=== PATIENT | female | born 1995 | race Caucasian/White ===

== ENCOUNTER 2021-03-07 22:01 | Emergency (ER) | payer OTHER, SELFPAY ==
--- NOTE | ~2021-03-07 | XR_ITS ---
XR ankle LT min 3V, XR foot LT min 3V 03/07/2021 22:23 INDICATION: Left foot and ankle pain after fall PROCEDURE: 3 views left ankle and 3 views left foot COMPARISON: No prior studies for comparison. FINDINGS: Fracture, dislocation or subluxation is not identified. The soft tissues appear within norm al limits. No foreign bodies are identified. IMPRESSION: 1: NO ACUTE BONE OR JOINT ABNORMALITY IDENTIFIED. Reviewed, dictated and finalized at location A. IMPRESSION: 1: NO ACUTE BONE OR JOINT ABNORMALITY IDENTIFIED.
[2021-03-07 22:07] VITALS: BP 149/86; PULSE 72; RESP 16; TEMP 36; O2SAT 100
--- NOTE | 2021-03-07 23:55 | ED.LOWEXIN ---
HPI - Extremity Injury (Lower) General Chief Complaint: Extremity Injury, Lower Stated Complaint: left ankle injury Time Seen by Provider: 03/07/21 23:53 Source: patient, family and RN notes reviewed Limitations: no limitations History of Present Illness HPI Narrative: Patient is 25 years old white female twisted her left ankle after falling down off 1 step. Patient denies other injuries. 3-hour prior to arrival. Related Data Allergies Allergy/AdvReac Type Severity Reaction Status Date / Time No Known Allergies Allergy Verified 09/17/19 16:02 Review of Systems Review of Systems: Narrative: CONSTITUTIONAL: Denies fever, chills, or sweats. EYES: Denies visual changes, redness, or discharge. ENT: Denies rhinorrhea, congestion, sore throat, or otalgia. CARDIOVASCULAR: Denies chest pain, palpitations, or edema. RESPIRATORY: Denies cough or dyspnea. GASTROINTESTINAL: Denies abdominal pain, nausea, vomiting, or diarrhea. GENITOURINARY: Denies dysuria or hematuria. SKIN: Denies rash or itching. MUSCULOSKELETAL: Denies back pain, joint pain, or myalgia. NEUROLOGIC: Denies headache, numbness, or weakness. PSYCHIATRIC: Denies anxiety or depression. [facility] Past Medical History Medical History Depression Surgical History Surgical History History of cholecystectomy History of Zora-en-Y gastric bypass Social History Social History Smoking status: Never smoker Alcohol intake: never Gender identity (if verbalized by the patient): Female Exam Narrative: Exam Narrative: General appearance: Well-developed, well-nourished Skin: Normal color Chest and respiratory: Airway patent, no respiratory distress, no accessory muscle use Heart: Regular rate/rhythm Vascular: Normal peripheral pulses, normal capillary refill. Musculoskeletal: Diffuse tenderness left ankle, mainly lateral malleolus with swelling, no deformity, severe limited range of motion Neurologic: Alert and oriented ?3, Course Course Emergency Course: Stable Vital Signs Vital signs: Vital Signs Temperature 36.0 C L 03/07/21 22:07 Pulse Rate 72 03/07/21 22:07 Respiratory Rate 16 03/07/21 22:07 Blood Pressure 149/86 H 03/07/21 22:07 Pulse Oximetry 100 03/07/21 22:07 Temperature 36.0 C L 03/07/21 22:07 Pulse Rate 68 03/08/21 00:13 Respiratory Rate 18 03/08/21 00:13 Blood Pressure 138/72 03/08/21 00:13 Pulse Oximetry 98 03/08/21 00:13 MDM - Extremity Injury (Lower) MDM Narrative Medical decision making narrative: Patient had a fall and left ankle twist. No other injuries. X-ray left ankle and foot ordered. Further plan to follow Imaging Data Radiologist's impression: Impressions Ankle X-Ray 03/07/21 22:24 IMPRESSION: 1: NO ACUTE BONE OR JOINT ABNORMALITY IDENTIFIED. Foot X-Ray 03/07/21 22:24 IMPRESSION: 1: NO ACUTE BONE OR JOINT ABNORMALITY IDENTIFIED. Critical Care Time Critical Care Time Critical Care Time: No Discharge Plan Discharge Clinical Impression: Ankle sprain and strain Patient Disposition: Home, Self-Care Condition: Stable Instructions: Ankle Sprain (ED), Ankle Stirrup Splint (ED) Additional Instructions: Return if symptoms are worsening , call your family physician for appointment, take Tylenol as as needed for aches and pain, continue home medications., Keep left foot elevated, ice pack 20 minutes/h for the next 24 hours, do not put any weight on the left foot. Prescriptions: No Action sulfamethoxazole-trimethoprim [Bactr
[2021-03-08 00:13] VITALS: BP 138/72; PULSE 68; RESP 18; O2SAT 98
== END 2021-03-08 00:10 | disposition home or self-care (01) ==
PROVIDERS: Emergency Provider Emergency Medicine
DX: S93.402A Sprain of unspecified ligament of left ankle, initial encounter (principal); S96.912A Strain of unspecified muscle and tendon at ankle and foot level, left foot, initial encounter; Z98.84 Bariatric surgery status; W10.9XXA Fall (on) (from) unspecified stairs and steps, initial encounter
CPT/HCPCS: 73610; 73630; 99283

== ENCOUNTER 2021-05-28 07:47 | Outpatient (RCR) | payer OTHER, SELFPAY ==
[2021-05-28] MEDS: RHO(D) IMMUNE GLOBULIN 300 MCG/2 ML SYRINGE IM (13:22)
== END 2021-08-25 23:59 | disposition home or self-care (01) ==
LOC: ANHLAB 07:47
PROVIDERS: Visit Provider Advanced Practice Midwife
DX: Z29.13 Encounter for prophylactic Rho(D) immune globulin (principal); O36.0190 Maternal care for anti-D [Rh] antibodies, unspecified trimester, not applicable or unspecified; Z3A.00 Weeks of gestation of pregnancy not specified
CPT/HCPCS: 36415; 85461; 90384; 96372; J2790

== ENCOUNTER 2021-06-12 14:03 | Outpatient (CLI) | payer OTHER, SELFPAY ==
[2021-06-12 15:31] LABS: Hematocrit 32.8 % (37.0-47.0); Hemoglobin 10.8 g/dL (12.0-15.0)
[2021-06-12 15:41] LABS: Glucose 1 Hour PP 50gm Dose 82 mg/dL
[2021-06-12 16:23] LABS: HIV 1/2 Ab P24 Ag Result Negative (Negative)
[2021-06-13 11:39] LABS: Rapid Plasma Reagin Non-Reactive (NonReactive)
== END 2021-06-12 14:04 | disposition home or self-care (01) ==
LOC: ANHLAB 14:07
PROVIDERS: Visit Provider Advanced Practice Midwife
DX: Z34.90 Encounter for supervision of normal pregnancy, unspecified, unspecified trimester (principal); Z3A.00 Weeks of gestation of pregnancy not specified
CPT/HCPCS: 36415; 82947; 85014; 85018; 86592; 86703; 86850; 86880; 86900; 86901; G0432

== ENCOUNTER 2021-08-14 07:54 | Outpatient (RCR) | payer OTHER, SELFPAY ==
[2021-08-14] MEDS: RHO(D) IMMUNE GLOBULIN 300 MCG/2 ML SYRINGE IM (17:15)
== END 2021-08-14 07:55 | disposition home or self-care (01) ==
LOC: ANHLAB 07:54
PROVIDERS: Visit Provider Obstetrics & Gynecology
DX: Z29.13 Encounter for prophylactic Rho(D) immune globulin (principal); O36.0190 Maternal care for anti-D [Rh] antibodies, unspecified trimester, not applicable or unspecified; Z3A.00 Weeks of gestation of pregnancy not specified
CPT/HCPCS: 36415; 85461; 90384; 96372; J2790

== ENCOUNTER 2021-08-29 17:14 | Outpatient (CLI) | payer OTHER, SELFPAY ==
[2021-08-29 17:52] VITALS: BP 114/65; PULSE 84
--- NOTE | 2021-08-29 17:55 | PC.NURSE ---
Called Dr. Livingston. Informed of negative ROM plus. Pt denies contractions at this time and no contractions seen on monitor. Reactive tracing. March D/C home.
== END 2021-08-29 18:01 | disposition home or self-care (01) ==
LOC: ANHOBOP 17:18 → ANHLDR 17:19
PROVIDERS: Visit Provider Obstetrics & Gynecology
DX: O41.8X90 Other specified disorders of amniotic fluid and membranes, unspecified trimester, not applicable or unspecified (principal); Z3A.00 Weeks of gestation of pregnancy not specified
CPT/HCPCS: 59025; 84112; 99199

== ENCOUNTER 2021-09-04 16:30 | Outpatient (RCR) | payer OTHER, SELFPAY ==
[2021-07-29 13:30] VITALS: BP 135/76; PULSE 87
--- NOTE | 2021-07-29 14:01 | PC.NURSE ---
1345- Spoke with Dr. Cervantes, orders for just NST and BPP. IF normal, patient may be discharged to home.
[2021-08-04 16:42] VITALS: BP 133/66; PULSE 88
[2021-08-07 17:15] VITALS: BP 121/77; PULSE 95
[2021-08-14 17:12] VITALS: BP 118/71; PULSE 88
[2021-08-21 17:02] VITALS: BP 122/67; PULSE 74
--- NOTE | ~2021-09-04 | US_ITS ---
EXAMINATION: US OB BPP wo non-stress EXAM DATE: 07/29/2021 14:12 INDICATION: PT Kicked In Stomach . 3rd trimester. TECHNIQUE: Pelvic obstetrical transabdominal sonogram was performed by a technologist. There are mu ltiple grayscale and Doppler images available for interpretation. There are no earlier studies of th is gestation for comparison. FINDINGS: There is a single fetus identified in vertex presentation with a heart rate of 132 beats pe r minute. The placenta is located in the anterior position. There is no sonographic evidence of retr oplacental hemorrhage identified. BIOPHYSICAL PROFILE (performed by the technologist) breathing (30 sec sustained breathing in 30 minutes): 2 out of 2 movement (3 gross body movements in 30 minutes): 2 out of 2 tone (one episode of kjizjtq-ykproqjrb-bijglty limb movement): 2 out of 2 Amniotic fluid pocket (2 cm): 2 out of 2 Total score: 8 out of 8 IMPRESSION: 1. Single fetus with heart rate of 132 bpm. 2. Normal biophysical profile score of 8 out of 8. Reviewed, dictated and finalized at location B.
[2021-09-04 17:30] VITALS: BP 127/75; PULSE 92
== END 2021-10-27 23:59 | disposition home or self-care (01) ==
LOC: ANHOBOP 16:30
PROVIDERS: Visit Provider Obstetrics & Gynecology
DX: O99.893 Other specified diseases and conditions complicating puerperium (principal); W50.1XXA Accidental kick by another person, initial encounter; Z3A.33 33 weeks gestation of pregnancy; E66.9 Obesity, unspecified; Z3A.34 34 weeks gestation of pregnancy; Z3A.35 35 weeks gestation of pregnancy; Z3A.36 36 weeks gestation of pregnancy; Z3A.37 37 weeks gestation of pregnancy; Z3A.39 39 weeks gestation of pregnancy
CPT/HCPCS: 59025; 76819

== ENCOUNTER 2021-09-05 23:36 | Inpatient (IN) | payer OTHER, SELFPAY ==
--- NOTE | 2021-09-05 23:36 | LDADM ---
This patient, Josy Cannon, was admitted to Labor/Delivery/Recovery 105 on 09/05/21 at 23:36. Plans for labor, pain management and were discussed with patient. Patient/family oriented to hospital policies and general routines including ID bracelet, bed and alarms, visiting hours, pain management, procedures, bathroom and other care routines, personal items, smoking policy, room service/diet and guest tray routines, infant security routines, and visiting hours. Patient/Family are encouraged to report perceived risks to care and to ask questions if they do not understand what they are told or what they should do. See OBIX for further documentation.
[2021-09-06] VITALS (28 sets, daily range): BP systolic 96–137; BP diastolic 51–105; PULSE 66–96; RESP 16–18; TEMP 36.2–37.1; O2SAT 99–100; BMI 50.3
[2021-09-06 00:49] LABS: Basophils Percent Auto 0.2 % (0.2-1.2); Eosinophils Percent Auto 0.3 % (0-4.4); Hematocrit 36.6 % (37.0-47.0); Hemoglobin 12.1 g/dL (12.0-15.0); Immature Granulocyte Absolute 0.03 K/mm3 (0.00-0.031); Immature Granulocyte Percent A 0.3 % (0-0.5); Lymphocytes Absolute Auto 1.76 K/mm3 (0.9-3.2); Lymphocytes Percent Auto 15.8 % (18.3-44.2); Mean Corpuscular HGB Conc 33.1 g/dl (32-36); Mean Corpuscular Hemoglobin 28.5 pg (26-34); Mean Corpuscular Volume 86.1 fl (80-100); Monocytes Absolute Auto 0.5 K/mm3 (0.1-0.6); Monocytes Percent Auto 4.5 % (2.6-8.5); Neutrophils Absolute Auto 8.8 K/mm3 (1.3-6.7); Neutrophils Percent Auto 78.9 % (45.5-73.1); Platelet Count Result 242 k/mm3 (150-375); Red Blood Count 4.25 M/mm3 (4.2-5.4); Red Cell Distribution Width 13.5 % (11.5-14.5); White Blood Count 11.2 K/mm3 (4.5-10.0)
[2021-09-06] MEDS: fentaNYL CITRATE INJ (*CRX) 100 MCG/2 ML VIAL 50 MCG IV PUSH (01:16)
[2021-09-06] MEDS: fentaNYL CITRATE INJ (*CRX) 100 MCG/2 ML VIAL IV PUSH ×2 (03:09→05:49)
[2021-09-06] MEDS: LACTATED RINGERS 1,000 ML 125 ML IV CONT (05:52)
[2021-09-06] MEDS: OXYTOCIN 30 UNITS/NS 500 ML 30 UNITS/500 ML BAG IV CONT (05:52)
--- NOTE | 2021-09-06 08:01 | WPDHPUPDATE1 ---
History and Physical Update Update Date/Time: 09/06/21 08:01 This patient is a 26-year-old multiparous female at term who presented in labor. is uncomplicated. Artificial rupture membranes was performed-clear fluid History and Physical has been reviewed, including an updated exam of the patient. There are NO changes in the patient's condition. Risks, benefits, and alternatives have been discussed and questions answered. Patient agrees to proceed with procedure.
--- NOTE | 2021-09-06 08:17 | PM.OBPRVD ---
OB - Delivery Note Procedure Delivery date: 09/06/21 Intrapartal events: None Induction method: none Delivery augmentation: rupture of membranes Delivery monitor: external FHT and external uterine Route of delivery: Laceration Description: None Specimen: No Quantitative Blood Loss (ml): 200 Baby Date of : 09/06/21 Time of : 08:07 Weeks of gestation at delivery: 39 gender: Female Weight (pounds): 8 Weight (ounces): 14 Placenta delivery description: Spontaneous score one minute: 9 score five minutes: 9
[2021-09-06] MEDS: OXYTOCIN 30 UNITS/NS 500 ML 30 UNITS/500 ML BAG 125 UNITS IV CONT (08:45)
[2021-09-06] MEDS: IBUPROFEN 600 MG TABLET PO ×3 (10:00→23:21)
--- NOTE | 2021-09-06 10:52 | PC.NURSE ---
Patient transferred to post room #290 per wheelchair. Support person present. Oriented to unit, room, information board, rooming in, admission packet and security measures. Patient verbalizes understanding.
[2021-09-06] MEDS: MULTIVIT/MIN/PREN/FOL AC/IRON TABLET 1 TAB PO (16:36)
[2021-09-06] MEDS: TETANUS,DIPHTHERIA,AC PERTUSSIS ADULT (0.5 ML) BOOSTRIX IM (18:28)
--- NOTE | 2021-09-06 19:29 | PC.NURSE ---
Patient viewed the discharge video Mother & Baby Care, The First Two Weeks online. Patient was given the opportunity and encouraged to ask questions. Patient verbalized understanding of information shared and has been given the mother/baby guide for home reference.
[2021-09-07 04:10] VITALS: BP 115/72; PULSE 67; RESP 16; TEMP 36.1; O2SAT 98
[2021-09-07 04:18] LABS: Hematocrit 30.7 % (37.0-47.0)
[2021-09-07] MEDS: MULTIVIT/MIN/PREN/FOL AC/IRON TABLET 1 TAB PO (07:53)
[2021-09-07] MEDS: IBUPROFEN 600 MG TABLET PO (07:53)
[2021-09-07] MEDS: DOCUSATE SODIUM 100 MG CAPSULE PO (07:53)
[2021-09-07 08:00] VITALS: BP 125/75; PULSE 70; RESP 18; TEMP 36.7
--- NOTE | 2021-09-07 08:39 | PC.NURSE ---
Self care and infant care discharge instructions given including follow up visit date and time. Mother verbalized understanding. No questions or concerns voiced. Very pleasant. FOB at side.
--- NOTE | 2021-09-07 12:13 | PM.OBPNVD ---
OB - PN: Subj Subjective Date/time seen: 09/07/21 12:13 Patient comments: no complaints, pain well controlled, incisional pain, tolerating diet and flatus present OB - PN: Obj Data Labs CBC & Chem 7: 09/07/21 04:07 Labs: Laboratory Results - last 24 hr 09/07/21 04:07 Hgb 10.0 L Hct 30.7 L OB - PN A/P Plan day: 1 Plan: routine care Comments: No problems, routine care Time Spent With Patient Time: Total time spent is greater than 50% in coordination of care (as documented) at patient's floor/unit and/or counseling patient: Exam Const: General: comfortable, no acute distress and alert Resp: Effort & Inspection: normal respiratory effort Auscultation: no crackles, no rales and no rhonchi Cardio: Rate: regular rate Heart sounds: no click, no murmurs and no rubs GI: Inspection: non-distended GI Palp: No Tenderness to palpation present (GI) Auscultation: normal bowel sounds Other: Incision - CDI Extrem: General: normal to inspection, no pedal edema and no calf tenderness
--- NOTE | 2021-09-07 12:14 | PM.OBDSVD ---
DS: Admitting Diagnosis Discharge Date 09/07/2021 Admitting Diagnosis term DS: Discharge Diagnosis Discharge Diagnosis (1) Term delivered: Code(s): O80 - Encounter for full-term uncomplicated delivery Status: Acute OB - DS: Summary OB Procedures : None OB Procedures Intrapartum: Spontaneous Vag Delivery OB Procedures: : None Time Spent with Patient Time attestation: Total time spent providing and/or coordinating discharge services: DS: Data Data Completed and Pending Labs on day of discharge: Labs from last 24 hours 09/07/21 04:07 Hgb 10.0 L Hct 30.7 L Discharge Plan Discharge Attending physician on discharge: Sandip Cervantes Discharging Clinician: Sandip Cervantes Anticipated Discharge Date/Time: 09/07/21 10:00 Patient Disposition: Home, Self-Care Activity: may shower and pelvic rest Diet: regular Discharge Instructions: Education: Mom and Baby Guide Given to: Mother Follow-Up: Call your delivering provider's office for an appointment to be seen in: 1 Week Mom and baby should come to the [facility] for the follow-up appointment. Appointment Date/Time: Thursday, September 09, 2021 at 10:00 am What to expect at your follow-up visit: Blood Pressure Check Physical Assessment Call [phone] if you are unable to keep your appointment time. BREAST CARE: * Wear a snug supportive bra. * For engorgement discomfort: Breast Feeding: * Apply warm moist washcloths * Express milk as needed to relieve engorgement * Wear loose clothing * For sore nipples: * Identify correct latch-on * Apply warm moist washcloths before and after nursing * Air dry nipples after nursing * May apply Lansinoh cream to nipples EPISIOTOMY/PERINEAL CARE: * Until bleeding stops, use your jessica bottle after urinating * Change your pad frequently throughout the day * You may take sitz baths several times a day (fill your bathtub with warm water and soak for 20 minutes.) Do NOT bathe in the water ACTIVITY: * Rest as much as possible. * Do not exercise or lift anything heavier than your baby (such as laundry or other children.) * Avoid stairs or driving as much as possible. * Do not put anything into the vagina. No douching, tampons, or sexual activity until seen by physician. NOTIFY PHYSICIAN IF YOU HAVE ANY QUESTIONS OR IF ANY OF THE FOLLOWING SYMPTOMS OCCUR: * If your vaginal bleeding becomes foul smelling. * If your vaginal bleeding becomes more heavy than a period or if your bleeding changes from pink to bright red. However, you may pass an occasional walnut-sized clot once or twice for the first week . * If you experience a sharp, shooting pain in you calves. * If you discover a hard, reddened area on your breast or if you experience flu-like symptoms. DIET: * Eat regular, well-balanced meals. * Drink plenty of fluids daily. If , drink to thirst. Patient Instructions: Antibiotic Form Stand Alone Forms: General Discharge Information Follow-up/Referrals: Sandip Cervantes MD [Physician] - 4 Weeks Discharge Medications: New KPN Tablet 1 tab PO DAILY RF: 0 Continued PNV cmb#95-ferrous fumarate-FA [] 28 mg iron- 800 mcg Tablet 1 tablet PO DAILY RF: 0 Date of admission: 09/05/21 23:36 Primary Care Provider: PHYSICIAN,[employer] MANAGER Admitting Provider: Sandip Cervantes Attending physician on admission: Sandip Cervantes Condition: Stable
[2021-09-08 07:23] LABS: Rapid Plasma Reagin Non-Reactive (NonReactive)
[2021-09-09 09:59] VITALS: BP 129/68; PULSE 79; RESP 20; TEMP 37.7; O2SAT 100
== END 2021-09-07 12:25 | disposition home or self-care (01) | DRG 807 ==
LOC: ANHLDR 09-06 00:16 → ANHOB2 09-06 11:01
PROVIDERS: Admitting Provider Obstetrics & Gynecology; Visit Provider Obstetrics & Gynecology
DX: O99.02 Anemia complicating childbirth (principal); Z37.0 Single live birth; Z3A.39 39 weeks gestation of pregnancy; D64.9 Anemia, unspecified; O99.344 Other mental disorders complicating childbirth; F41.9 Anxiety disorder, unspecified; Z23 Encounter for immunization
CPT/HCPCS: 36415; 85014; 85018; 85025; 86592; 86850; 86880; 86900; 86901; 86902; 90471; 90653; 90715; A9270; G0008; J2590; J3010; J7120

== ENCOUNTER 2022-12-18 12:16 | Outpatient (RCR) | payer OTHER, SELFPAY ==
[2022-12-18 13:58] LABS: Hematocrit 32.1 % (37.0-47.0); Hemoglobin 10.3 g/dL (12.0-15.0)
[2022-12-18 14:13] LABS: Glucose 132 mg/dL (65-110)
[2022-12-18 14:55] LABS: HIV 1/2 Ab P24 Ag Result Negative (Negative)
[2022-12-20] MEDS: RHO(D) IMMUNE GLOBULIN 300 MCG/2 ML SYRINGE IM (10:21)
== END 2023-03-18 23:59 | disposition home or self-care (01) ==
LOC: ANHLAB 12:16
PROVIDERS: Visit Provider Advanced Practice Midwife
DX: Z11.4 Encounter for screening for human immunodeficiency virus [HIV] (principal); Z29.13 Encounter for prophylactic Rho(D) immune globulin; O36.0130 Maternal care for anti-D [Rh] antibodies, third trimester, not applicable or unspecified; Z3A.00 Weeks of gestation of pregnancy not specified
CPT/HCPCS: 36415; 82947; 85014; 85018; 85461; 86703; 86850; 86900; 86901; 90384; 96372; G0432; J2790

== ENCOUNTER 2023-02-28 16:00 | Inpatient (IN) | payer OTHER, SELFPAY ==
[2023-02-28] VITALS (14 sets, daily range): BP systolic 100–124; BP diastolic 51–78; PULSE 56–86; RESP 16; TEMP 36.1–36.2; BMI 49.0
[2023-02-28 17:21] LABS: Basophils Percent Auto 0.3 % (0.2-1.2); Eosinophils Percent Auto 0.4 % (0-4.4); Hematocrit 34.2 % (37.0-47.0); Hemoglobin 11.1 g/dL (12.0-15.0); Immature Granulocyte Absolute 0.02 K/mm3 (0.00-0.031); Immature Granulocyte Percent A 0.3 % (0-0.5); Lymphocytes Absolute Auto 1.71 K/mm3 (0.9-3.2); Lymphocytes Percent Auto 22.6 % (18.3-44.2); Mean Corpuscular HGB Conc 32.5 g/dl (32-36); Mean Corpuscular Hemoglobin 27.3 pg (26-34); Mean Platelet Volume 10.1 fl (7.4-10.4); Monocytes Absolute Auto 0.4 K/mm3 (0.1-0.6); Neutrophils Absolute Auto 5.4 K/mm3 (1.3-6.7); Neutrophils Percent Auto 71.4 % (45.5-73.1); Platelet Count Result 267 k/mm3 (150-375); Red Blood Count 4.07 M/mm3 (4.2-5.4); Red Cell Distribution Width 15.3 % (11.5-14.5); White Blood Count 7.6 K/mm3 (4.5-10.0)
[2023-02-28] MEDS: OXYTOCIN 30 UNITS/NS 500 ML 30 UNITS/500 ML BAG IV CONT (17:27)
[2023-02-28] MEDS: LACTATED RINGERS 1,000 ML 125 ML IV CONT (17:28)
--- NOTE | 2023-02-28 19:33 | WPDANESEPP ---
Anes - Eval Pre Procedure Procedure: labor epidural Date/Time: 02/28/23 19:33 Pre Op Diagnosis: Leaking Patient Data Age: 27 Gender: F Height: 1.78 m Weight: 155 kg Last Vital Signs Temp 36.1 C L 02/28/23 18:30 Pulse 78 02/28/23 19:01 Resp 16 02/28/23 18:30 BP 109/66 02/28/23 19:01 O2 Del Method Room Air 02/28/23 16:45 Allergies Allergy/AdvReac Type Severity Reaction Status Date / Time No Known Allergies Allergy Verified 02/28/23 16:40 Home Medications Medication Instructions Recorded Confirmed Type vit no.95-ferrous 1 tablet PO DAILY 08/14/21 02/28/23 History fumarate 28 mg-folic acid 800 mcg tablet () Laboratory Tests 02/28/23 02/28/23 02/28/23 17:16 17:16 17:16 WBC 7.6 K/mm3 K/mm3 (4.5-10.0) RBC 4.07 M/mm3 L M/mm3 (4.2-5.4) Hgb 11.1 g/dL L g/dL (12.0-15.0) Hct 34.2 % L % (37.0-47.0) MCV 84.0 fl fl (80-100) MCH 27.3 pg pg (26-34) MCHC 32.5 g/dl g/dl (32-36) RDW 15.3 % H % (11.5-14.5) Plt Count 267 k/mm3 k/mm3 (150-375) MPV 10.1 fl fl (7.4-10.4) Immature Gran % (Auto) 0.3 % % (0-0.5) Neut % (Auto) 71.4 % % (45.5-73.1) Lymph % (Auto) 22.6 % % (18.3-44.2) [place] % (Auto) 5.0 % % (2.6-8.5) Eos % (Auto) 0.4 % % (0-4.4) Baso % (Auto) 0.3 % % (0.2-1.2) Lymph # (Auto) 1.71 K/mm3 K/mm3 (0.9-3.2) [place] # (Auto) 0.4 K/mm3 K/mm3 (0.1-0.6) Eos # (Auto) 0.0 K/mm3 K/mm3 (0-0.3) Baso # (Auto) 0.0 K/mm3 K/mm3 (0.0-0.1) Abs Immat Gran (auto) 0.02 K/mm3 K/mm3 (0.00-0.031) Absolute Neuts (auto) 5.4 K/mm3 K/mm3 (1.3-6.7) Absolute Nucleated RBC 0.0 K/mm3 K/mm3 (0.0-0.012) Nucleated RBC % 0.0 % % (0.0-0.2) RPR Pending Blood Type A Negative Antibody Screen Positive Antibody Identification Pending Antigen Identification Pending DIMITRI, IgG Interpret Pending DIMITRI, Poly Interpret Pending DIMITRI, Complement Interp Pending Patient hx anesthesia problems: none Family hx anesthesia problems: none Results Review: All pre-operative results and documents have been reviewed as part of the pre-operative evaluation. [facility] Past Medical History Medical History (Updated 02/28/23 @ 19:34 by Serene Retana CRNA) Depression Migraine Surgical History Surgical History History of cholecystectomy History of Zora-en-Y gastric bypass Family History Family History Other Family history normal Social History Social History Smoking status: Never smoker Alcohol intake: never Substance use: never Lack of Transportation: No Lack of Food: Never True Current Housing: I Do Not Have Housing Concerned About Future Housing: No Difficulty Paying Gas/Electric Bills: No Difficulty Paying for Meds: No Currently Unemployed: No Education: Bachelor's Degree Difficulty w/ Childcare or Family Care: No Gender identity (if verbalized by the patient): Female Spiritual care concerns: No Exam Day of Procedure 02/28/23 19:33 Patient weight: morbidly obese Heart: regular rate and rhythm Lungs: normal air movement Airway: Mallampati scale Neurological: alert and oriented
[2023-02-28] MEDS: fentaNYL CITRATE INJ (*CRX) 100 MCG/2 ML VIAL 50 MCG IV PUSH (20:32)
[2023-02-28] MEDS: fentaNYL CITRATE INJ (*CRX) 100 MCG/2 ML VIAL IV PUSH (21:37)
--- NOTE | 2023-02-28 22:56 | WPDOBADMIT ---
Obstetrics - Admit Note Admission Note: 27 y/o at 38.6 here with srom. record reviewed. No pertinent additions to the history and/or any subsequent changes in the physical findings that are not consistent with the expected course of the were found. Additions to the history and/or subsequent changes in the physical findings follow. None.
--- NOTE | 2023-02-28 22:57 | PM.OBPRVD ---
OB - Delivery Note Procedure Delivery date: 02/28/23 Procedure: Induction method: None Delivery monitor: External FHT and External Uterine Route of delivery: Episiotomy description: None Laceration Description: None Quantitative Blood Loss (ml): 127 Anesthesia type: None Narrative: Mother and baby both in stable condition. Gasses collected and handed off to staff. Baby Date of : 02/28/23 Time of : 22:43 Weeks of gestation at delivery: 38 gender: Female presentation: vertex position: Left Occiput Anterior Placenta delivery description: Spontaneous Cord Vessel Description: 3 Vessels and Delayed Cord Clamping score one minute: 9 score five minutes: 9
[2023-02-28] MEDS: OXYTOCIN 30 UNITS/NS 500 ML 30 UNITS/500 ML BAG 125 UNITS IV CONT (23:18)
[2023-02-28] MEDS: IBUPROFEN 600 MG TABLET PO (23:39)
[2023-03-01] VITALS (8 sets, daily range): BP systolic 106–120; BP diastolic 44–77; PULSE 57–92; RESP 14–18; TEMP 36.4–36.6; O2SAT 97–100
--- NOTE | 2023-03-01 00:55 | OBPPTRN ---
Patient transferred to post room #285 via wheelchair. Support person present. Oriented to unit, room, information board, rooming in, admission packet and security measures. Patient verbalizes understanding.
[2023-03-01 05:36] LABS: Hematocrit 31.3 % (37.0-47.0); Hemoglobin 10.2 g/dL (12.0-15.0)
--- NOTE | 2023-03-01 08:02 | PM.OBPNVD ---
OB - PN: Subj Subjective Date/time seen: 03/01/23 08:02 Patient comments: no complaints baby status: doing well OB - PN: Obj Data Labs 03/01/23 04:14 Labs: Laboratory Results - last 24 hr 02/28/23 02/28/23 03/01/23 17:16 17:16 04:14 WBC 7.6 RBC 4.07 L Hgb 11.1 L 10.2 L Hct 34.2 L 31.3 L MCV 84.0 MCH 27.3 MCHC 32.5 RDW 15.3 H Plt Count 267 MPV 10.1 Immature Gran % (Auto) 0.3 Neut % (Auto) 71.4 Lymph % (Auto) 22.6 [place] % (Auto) 5.0 Eos % (Auto) 0.4 Baso % (Auto) 0.3 Lymph # (Auto) 1.71 [place] # (Auto) 0.4 Eos # (Auto) 0.0 Baso # (Auto) 0.0 Abs Immat Gran (auto) 0.02 Absolute Neuts (auto) 5.4 Absolute Nucleated RBC 0.0 Nucleated RBC % 0.0 Blood Type A Negative Antibody Screen Positive Antibody Identification Inconclusive Antigen Identification Cancelled DIMITRI, IgG Interpret Negative DIMITRI, Poly Interpret Neg DIMITRI, Complement Interp Not Performed OB - PN A/P Plan day: 1 Plan: routine care Time Spent With Patient Time: Total time spent is greater than 50% in coordination of care (as documented) at patient's floor/unit and/or counseling patient: Time with patient: less than 15 minutes Review of Systems Review of Systems: All systems reviewed & are unremarkable except as noted in HPI and below Exam Narrative: Fundus firm and vaginal flow controlled. No lower ext redness, warmth, or edema. Negative homans. Const: General: comfortable Chest: Breast/axilla inspection: normal inspection of the breasts Resp: Effort & Inspection: normal respiratory effort Cardio: Rate: regular rate GI: GI Palp: Yes Soft to palpation Psych: Appearance: grossly normal Affect: normal affect Attitude: cooperative Thought content: Yes Normal thought content present Judgement: Good judgement present (Psych)
[2023-03-01] MEDS: IBUPROFEN 600 MG TABLET PO ×2 (08:03→15:41)
[2023-03-01] MEDS: MULTIVIT/MIN/PREN/FOL AC/IRON TABLET 1 TAB PO (08:03)
[2023-03-01 09:40] LABS: Rapid Plasma Reagin Non-Reactive (NonReactive)
[2023-03-01] MEDS: ACETAMINOPHEN 325 MG TABLET 650 MG PO (19:31)
--- NOTE | 2023-03-02 07:51 | PM.OBPNVD ---
OB - PN: Subj Subjective Date/time seen: 03/02/23 07:51 Patient comments: no complaints baby status: doing well OB - PN: Obj Data Labs 03/01/23 04:14 Labs: Laboratory Results - last 24 hr 02/28/23 17:16 RPR Non-reactive OB - PN A/P Plan day: 2 Plan: routine care and discharge home (F/U in 4 weeks) Time Spent With Patient Time: Total time spent is greater than 50% in coordination of care (as documented) at patient's floor/unit and/or counseling patient: Time with patient: less than 15 minutes Review of Systems Review of Systems: All systems reviewed & are unremarkable except as noted in HPI and below Exam Narrative: Fundus firm and vaginal flow controlled. No lower ext redness, warmth, or edema. Negative homans. Const: General: comfortable Chest: Breast/axilla inspection: normal inspection of the breasts Resp: Effort & Inspection: normal respiratory effort Cardio: Rate: regular rate GI: GI Palp: Yes Soft to palpation Psych: Appearance: grossly normal Affect: normal affect Attitude: cooperative Thought content: Yes Normal thought content present Judgement: Good judgement present (Psych)
--- NOTE | 2023-03-02 07:54 | PM.OBDSVD ---
DS: Admitting Diagnosis Discharge Date 03/02/2023 Admitting Diagnosis Labor DS: Discharge Diagnosis Discharge Diagnosis (1) Vaginal delivery: Code(s): O80 - Encounter for full-term uncomplicated delivery Status: Acute OB - DS: Summary OB Procedures : None OB Procedures Intrapartum: Spontaneous Vag Delivery OB Procedures: : None Time Spent with Patient Time attestation: Total time spent providing and/or coordinating discharge services: DS: Data Data Completed and Pending Labs on day of discharge: Labs from last 24 hours 02/28/23 17:16 RPR Non-reactive Discharge Plan Discharge Attending physician on discharge: Diane Oliva Discharging Clinician: Diane Oliva Patient Disposition: Home, Self-Care Activity: pelvic rest Diet: as tolerated Patient Instructions: Antibiotic Form Stand Alone Forms: General Discharge Information Follow-up/Referrals: Diane Oliva CNM [Certified Nurse Drop Worker] - Discharge Medications: Continued PNV cmb#95-ferrous fumarate-FA [] 28 mg iron- 800 mcg Tablet 1 tablet PO DAILY Date of admission: 02/28/23 16:00 Primary Care Provider: PHYSICIAN,[employer]BER Admitting Provider: Sandip Cervantes Attending physician on admission: Sandip Cervantes Condition: Stable
[2023-03-02 08:00] VITALS: BP 111/69; PULSE 56; RESP 18; TEMP 36.6; O2SAT 100
[2023-03-02] MEDS: IBUPROFEN 600 MG TABLET PO (08:35)
[2023-03-02] MEDS: MULTIVIT/MIN/PREN/FOL AC/IRON TABLET 1 TAB PO (08:35)
--- NOTE | 2023-03-02 10:04 | PC.NURSE ---
Patient viewed the discharge video Mother & Baby Care, The First Two Weeks . Patient was given the opportunity and encouraged to ask questions. Patient verbalized understanding of information shared and has been given the mother/baby guide for home reference.
--- NOTE | 2023-03-02 14:13 | PC.NURSE ---
Primary RN reported mother was independently well prior to going home.
[2023-03-03 10:15] VITALS: BP 122/76; PULSE 66; RESP 20; TEMP 37.2; O2SAT 100
== END 2023-03-02 10:55 | disposition home or self-care (01) | DRG 807 ==
LOC: ANHLDR 16:37 → ANHOB2 03-01 01:55
PROVIDERS: Advanced Practice Midwife; Admitting Provider Obstetrics & Gynecology; Visit Provider Obstetrics & Gynecology
DX: O80 Encounter for full-term uncomplicated delivery (principal); Z37.0 Single live birth; Z3A.38 38 weeks gestation of pregnancy
CPT/HCPCS: 36415; 85014; 85018; 85025; 86592; 86850; 86880; 86900; 86901; 86902; A9270; J2590; J3010; J7120

== ENCOUNTER 2024-07-08 13:06 | Outpatient (CLI) | payer OTHER, SELFPAY ==
[2024-07-08 13:32] LABS: Basophils Percent Auto 0.5 % (0.2-1.2); Eosinophils Absolute Auto 0.1 K/mm3 (0-0.3); Eosinophils Percent Auto 1.2 % (0-4.4); Hematocrit 37.3 % (37.0-47.0); Hemoglobin 11.8 g/dL (12.0-15.0); Immature Granulocyte Absolute 0.01 K/mm3 (0.00-0.031); Immature Granulocyte Percent A 0.2 % (0-0.5); Lymphocytes Absolute Auto 2.14 K/mm3 (0.9-3.2); Mean Corpuscular HGB Conc 31.6 g/dl (32-36); Mean Corpuscular Hemoglobin 24.9 pg (26-34); Mean Corpuscular Volume 78.9 fl (80-100); Monocytes Absolute Auto 0.4 K/mm3 (0.1-0.6); Monocytes Percent Auto 5.4 % (2.6-8.5); Neutrophils Absolute Auto 3.9 K/mm3 (1.3-6.7); Neutrophils Percent Auto 59.7 % (45.5-73.1); Platelet Count Result 330 k/mm3 (150-375); Red Blood Count 4.73 M/mm3 (4.2-5.4); White Blood Count 6.5 K/mm3 (4.5-10.0)
[2024-07-08 13:40] LABS: Alanine Aminotransferase 11 U/L (6-35); Albumin Level 4.2 g/dL (3.5-5.1); Alkaline Phosphatase 89 U/L (38-126); Anion Gap 8 mmol/L (4-12); Aspartate Amino Transferase 21 U/L (14-36); Bilirubin,Total 0.2 mg/dL (0.2-1.3); Blood Urea Nitrogen 12 mg/dL (7-17); Carbon Dioxide 27 mmol/L (22-30); Chloride 104 mmol/L (98-107); Cholesterol 204 mg/dL (0-200); Estimated Glomerular Filt Rate > 60; Glucose 93 mg/dL (65-110); HDL Direct 44 mg/dL; Potassium 4.4 mmol/L (3.4-5.0); Sodium 139 mmol/L (137-145); Triglycerides 153 mg/dL (<150)
[2024-07-08 13:42] LABS: Hemoglobin A1C 5.4 % (<5.7)
[2024-07-08 13:52] LABS: LDL Cholesterol Direct 122 mg/dL
[2024-07-08 14:08] LABS: Vitamin D 25 Hydroxy 21.7 ng/mL
== END 2024-07-08 13:07 | disposition home or self-care (01) ==
PROVIDERS: PCP Clinical Nurse Specialist; Visit Provider Clinical Nurse Specialist
DX: E55.9 Vitamin D deficiency, unspecified (principal); F41.9 Anxiety disorder, unspecified; Z13.29 Encounter for screening for other suspected endocrine disorder; Z13.220 Encounter for screening for lipoid disorders; R73.9 Hyperglycemia, unspecified
CPT/HCPCS: 36415; 80053; 80061; 82306; 83036; 84443; 85025

== ENCOUNTER 2024-08-14 19:08 | Emergency (ER) | payer OTHER, SELFPAY ==
--- NOTE | ~2024-08-14 | XR_ITS ---
EXAM: XR ankle LT min 3V DATE: 08/14/2024 19:27 HISTORY: Pain s/p fall x8 days ago, pain to lateral ankle . COMPARISON: None available. FINDINGS: Normal mineralization. No fracture or dislocation. No lytic or blastic lesion. Joint space s are maintained. No erosion or periosteal change. Soft tissues within normal limits. IMPRESSION: No acute osseous finding in the left ankle. Reviewed, dictated and finalized at location K.
--- NOTE | 2024-08-14 19:14 | ED.LOWEXIN ---
HPI - Extremity Injury (Lower) General Chief Complaint: Extremity Injury, Lower Stated Complaint: left ankle pain Time Seen by Provider: 08/14/24 19:34 Source: patient and RN notes reviewed Mode of arrival: ambulatory Limitations: no limitations History of Present Illness HPI Narrative: 29-year-old female presents with concern for left ankle pain. Reports she rolled the ankle 1 week ago. Reports she has been taking ibuprofen over in a brace at home. She reports some pain at rest, worsening pain with weight-bearing and pressure. MD complaint: ankle injury Related Data Allergies Allergy/AdvReac Type Severity Reaction Status Date / Time No Known Allergies Allergy Verified 08/14/24 19:23 Review of Systems Review of Systems: CONSTITUTIONAL: Denies malaise, chills, sweats, or fever. SKIN: Denies rash or itching, open skin, laceration, abrasion, redness, warmth, swelling. MUSCULOSKELETAL: Reports left ankle pain NEUROLOGIC: Denies numbness, weakness All systems reviewed & are unremarkable except as noted in HPI and below PMFSH Past Medical History Medical History (Updated 08/14/24 @ 19:45 by Jasmin Cochran NP) Depression Migraine Surgical History Surgical History History of cholecystectomy History of Zora-en-Y gastric bypass Family History Family History Other Family history normal Social History Social History (Updated 06/08/24 @ 13:07 by Wendie Carroll CMA) Smoking status: Never smoker Alcohol intake: never Substance use: never Lack of Transportation: No Lack of Food: Never True Current Housing: I Do Not Have Housing Concerned About Future Housing: No Difficulty Paying Gas/Electric Bills: No Difficulty Paying for Meds: No Currently Unemployed: No Education: Associate Degree Difficulty w/ Childcare or Family Care: No Gender identity (if verbalized by the patient): Female Spiritual care concerns: No Comments At time of signature, agree with nursing past medical, surgical, social and family history. There is no relevant family history pertinent to the presenting complaint Exam Narrative: GENERAL: Well-appearing, well-nourished, and in no acute distress. HEAD: Normocephalic, atraumatic. EYES: PERRLA, conjunctivae clear NECK: Supple. CHEST: Speaks in full sentences. No respiratory distress. HEART: Regular rate and rhythm. Normal and equal peripheral pulses. EXTREMITIES: Left ankle, foot, digits have grossly normal strength and sensation, normal range of motion. No edema or ecchymosis. Normal sensation with sensitivity to light touch and pain. No point tenderness. No open wounds, no skin tenting, no devitalized tissue or atrophy, no trophic changes, no obvious deformity, alignment normal, nearby joints and structures intact. Distal pulses palpable and equal bilaterally, skin warm, dry, pink. Capillary refill less than 3 seconds. SKIN: Warm, dry, no rash. NEURO: Alert and oriented x3. PSYCH: Normal mood and affect Course Course Emergency Course: Patient is aware of diagnosis, understands and agrees to treatment plan. Anticipatory guidance given. Patient agrees to follow-up as directed and is aware of reasons to seek care at the emergency department. Portions of this record may have been created with voice recognition software Level of Care: Express Care Visit Vital Signs Vital signs: Reviewed. MDM - Extremity Injury (Lower) MDM Narrative Medical decision making narrative: Patients injury and pain is consistent with musculoskeletal etiology. No signs of neurological or vascular compromise on exam. Compartments and tissues are soft without signs of compartment syndrome. Pain is felt appropriate for further evaluation on an outpatient basis. Critical Care Time Critical Care Time Critical Care Time: No Discharge Plan Discharge Clinical Impre
[2024-08-14 19:23] VITALS: BP 139/87; PULSE 62; RESP 17; TEMP 36.2; O2SAT 98
== END 2024-08-14 20:01 | disposition home or self-care (01) ==
PROVIDERS: Emergency Provider Nurse Practitioner; PCP Clinical Nurse Specialist
DX: S93.402A Sprain of unspecified ligament of left ankle, initial encounter (principal); S96.912A Strain of unspecified muscle and tendon at ankle and foot level, left foot, initial encounter; X50.9XXA Other and unspecified overexertion or strenuous movements or postures, initial encounter; Z98.84 Bariatric surgery status
CPT/HCPCS: 73610; 99213; G0463

== ENCOUNTER 2025-01-22 15:21 | Outpatient (CLI) | payer OTHER, SELFPAY ==
--- OUTSIDE RECORDS SUMMARY | 2025-01-22 18:00 | XMS_ITS | Patient Health Summary ---
Author Organization [facility] Address [address] [facility] [place] [address] Care Team Providers Care Hospital Administrative Assistant Name Role Phone Juan Quintero MD Primary Care Provider Debra Mcclellan MD Unavailable [phone] Note from [facility],non-owned Affiliates and Associated Physician Practices is amultiple site organization consisting of ambulatory clinics and hospital sitesin [place], [place], [place] and [place]. This disclosure is being madepursuant to the Care Everywhere program and may not contain all information available regarding this patient. Last updated 18.[facility] Allergies No known active allergies Medications * Be aware that medications may not be up to date on this document. Alwaysverify current medications with the patient. * Sertraline HCl (ZOLOFT PO) * Norethindrone-Eth Estradiol (NORTREL 0.5/35, 28, PO) * methylPREDNISolone (MEDROL DOSEPAK) 4 MG tablet(Started 11/02/2020) Take by mouth as directed Take as directed by mouth per package instructions. 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 Immunizations * TDAP (7yrs+)(Given 05/25/2020, 05/16/2018) Social History Tobacco Use Types Packs/Day Years Used Date Smoking Tobacco: Never Smokeless Tobacco: Never Sex and Gender Information Value Date Recorded Sex Assigned at Not on file Gender Identity Not on file Sexual Orientation Not on file Last Filed Vital Signs Vital Sign Reading Time Taken Comments Blood Pressure 118/62 05/25/2020 11:32 AM CDT Pulse 98 11/02/2020 10:02 AM DIRECTOR OF FINANCIAL AID Temperature 37.4 C (99.4 F) 11/02/2020 10:02 AM DIRECTOR OF FINANCIAL AID Respiratory Rate 16 11/02/2020 10:02 AM DIRECTOR OF FINANCIAL AID Oxygen Saturation 97% 11/02/2020 10:02 AM DIRECTOR OF FINANCIAL AID Inhaled Oxygen Concentration - - Weight 149.7 kg (330 lb) 11/02/2020 10:02 AM DIRECTOR OF FINANCIAL AID Height 175.3 cm (5' 9 ) 11/02/2020 10:02 AM DIRECTOR OF FINANCIAL AID Body Mass Index 48.73 11/02/2020 10:02 AM DIRECTOR OF FINANCIAL AID Procedures * SARS-COV-2 (COVID-19)+INFLU A+B AG (AMB) POC(Performed 11/02/2020) Performed for Lower respiratory infection * INFLUENZA A+B - POINT OF CARE (AMB)(Performed 12/03/2017) Performed for Influenza * STREP A SCREEN - POINT OF CARE (AMB) STL(Performed 07/01/2017) Performed for Acute pharyngitis, unspecified etiology * STREP A SCREEN - POINT OF CARE (AMB) STL(Performed 03/27/2017) Performed for Acute pharyngitis, unspecified etiology Results * SARS-COV-2 (COVID-19)+INFLU A+B AG (AMB) POC (11/02/2020 10:17 AM DIRECTOR OF FINANCIAL AID) Influenza A Antigen Rapid Negative Negative [facility] Influenza B Antigen Rapid Negative Negative [facility] SARS-CoV-2 Ag Negative Negative [facility] COVID Internal Control Acceptable Acceptable [facility] Lot # [id number] [facility] Expiration Date 07/20/2022 [facility] Instrument Serial Number [id number] [facility] Microbiology SPECIMEN FROM NASAL FOSSAE / Unknown 11/02/2020 10:17 AM DIRECTOR OF FINANCIAL AID Serene Gallo TENTER FEEDER-FARM MANAGEMENT TEACHER LAB - PO INT OF CARE ORDERABLES [facility] [address] [place] [address] * (ABNORMAL) INFLUENZA A+B - POINT OF CARE (AMB) (12/03/2017) Influenza A Antigen Rapid Positive(A) Negative Influenza B Antigen Rapid Negative Negative Influenza Internal Control present NEGATIVE - POSITIVE Influenza Lot Number [id number] Influenza Expiration Date Other NASOPHARYNGEAL SWAB / Unknown 12/03/2017 Quintin Zavala Tereso TENTER FEEDER-FARM MANAGEMENT TEACHER LAB - POINT OF CARE ORDERABLES * STREP A SCREEN - POINT OF CARE (AMB) STL (07/01/2017) Only the most recent of2 resultswithin the time period is included. Strep A Rapid POCT Negative Negative Strep A Internal Control Present Lot # [id number] Expiration Date 02-18-2019 Throat ENTIRE THROAT (SURFACE REGION OF NECK) / Unknown 07/01/2017 Iqra L Sheri TENTER FEEDER-FARM MANAGEMENT TEACHER LAB - POINT O F CARE ORDERABLES Care Teams Hospital Administrative Assistant Relationship Specialty Start Date End Date Juan Quintero MD [address] [place] [address] PCP - General 06/04/21 Debra Mcclellan MD [address] [facility] [address] [place] [address] 06/04/21
--- OUTSIDE RECORDS SUMMARY | 2025-01-22 18:00 | XMS_ITS | Referral Summary ---
Author Organization [facility] Address [address] [facility] [place] [address] Care Team Providers Care Architectural Engineer Name Role Phone Juan Quintero MD Primary Care Provider Debra Mcclellan MD Unavailable [phone] Source Comments [facility],non-owned Affiliates and Associated Physician Practices is amultiple site organization consisting of ambulatory clinics and hospital sitesin [place], [place], [place] and [place]. This disclosure is being madepursuant to the Care Everywhere program and may not contain all information available regarding this patient. Last updated 18.[facility] [employer] Allergies No known active allergies Medications * Be aware that medications may not be up to date on this document. Alwaysverify current medications with the patient. Medication Sig Dispensed Refills Start Date End Date Status Sertraline HCl (ZOLOFT PO) Active Norethindrone-Eth Estradiol (NORTREL 0.5/35, 28, PO) Active methylPREDNISolone (MEDROL DOSEPAK) 4 MG tablet Take by mouth as directed Take as directed by mouth per package instructions. 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 Immunizations Name Administration Dates Next Due TDAP (7yrs+) 05/25/2020,05/16/2018 Social History Tobacco Use Types Packs/Day Years Used Date Smoking Tobacco: Never Smokeless Tobacco: Never Sex and Gender Information Value Date Recorded Sex Assigned at Not on file Gender Identity Not on file Sexual Orientation Not on file Last Filed Vital Signs Vital Sign Reading Time Taken Comments Blood Pressure 118/62 05/25/2020 11:32 AM CDT Pulse 98 11/02/2020 10:02 AM COMPUTER NETWORK SUPPORT SPECIALIST Temperature 37.4 C (99.4 F) 11/02/2020 10:02 AM COMPUTER NETWORK SUPPORT SPECIALIST Respiratory Rate 16 11/02/2020 10:02 AM COMPUTER NETWORK SUPPORT SPECIALIST Oxygen Saturation 97% 11/02/2020 10:02 AM COMPUTER NETWORK SUPPORT SPECIALIST Inhaled Oxygen Concentration - - Weight 149.7 kg (330 lb) 11/02/2020 10:02 AM COMPUTER NETWORK SUPPORT SPECIALIST Height 175.3 cm (5' 9 ) 11/02/2020 10:02 AM COMPUTER NETWORK SUPPORT SPECIALIST Body Mass Index 48.73 11/02/2020 10:02 AM COMPUTER NETWORK SUPPORT SPECIALIST Plan of Treatment Not on file Advance Directives Documents on File Type Date Recorded Patient Cordwood Cutter Expl anation Adv Directive/Living Will/POA 03/26/2017 Care Teams Architectural Engineer Relationship Specialty Start Date End Date Juan Quintero MD [address] [place] [address] PCP - General 06/04/21 Debra Mcclellan MD [address] [address] 06/04/21
--- OUTSIDE RECORDS SUMMARY | 2025-01-22 18:00 | XMS_ITS | Referral Summary ---
Author Organization [address] [address] Care Team Providers Care Vice President Pharmacy Name Role Phone Unknown, Notinfile Primary Care Provider Unavail able Encounters Date Type Department Care Team Description 12/04/2024 7:15 PM HIGH SCHOOL FOOTBALL COACH Office Visit [facility] at [address] [address] Charley Jewell NP Cough, unspecified type (Primary Dx) from Last 3 Months Allergies No known active allergies Medications ergocalciferol (VITAMIN D) 50,000 unit capsule Take 1 capsule (50,000 Units total) by mouth Active escitalopram (LEXAPRO) 10 mg tablet Take 1 tablet (10 mg total) by mouth daily 05/27/2023 Active escitalopram (LEXAPRO) 20 mg tablet Take 1 tablet (20 mg total) by mouth daily 11/23/2023 Active multivitamin tablet daily 07/06/2014 Active Active Problems Problem Noted Date Diagnosed Date Obesity 11/02/2011 Immunizations Immunization Administration Dates Next Due Tdap 01/14/2023 Social History Tobacco Use Types Packs/Day Years Used Date Smoking Tobacco: Never Comments Unknown Sex and Gender Information Value Date Recorded Sex Assigned at Not on file Legal Sex Female 3:58 AM HIGH SCHOOL FOOTBALL COACH Gender Identity Not on file Sexual Orientation Not on file Last Filed Vital Signs Vital Sign Reading Time Taken Comments Blood Pressure 129/84 12/04/2024 7:13 PM HIGH SCHOOL FOOTBALL COACH Pulse 74 12/04/2024 7:13 PM HIGH SCHOOL FOOTBALL COACH Temperature 37 C (98.6 F) 12/04/2024 7:13 PM HIGH SCHOOL FOOTBALL COACH Respiratory Rate 20 12/04/2024 7:13 PM HIGH SCHOOL FOOTBALL COACH Oxygen Saturation 98% 12/04/2024 7:13 PM HIGH SCHOOL FOOTBALL COACH Inhaled Oxygen Concentration - - Weight 165.6 kg (365 lb 3.1 oz) 05/22/2014 5:56 AM CDT Height 177.8 cm (5' 10 ) 12/04/2024 7:13 PM HIGH SCHOOL FOOTBALL COACH Body Mass Index 52.4 05/22/2014 5:56 AM CDT Plan of Treatment Not on file Procedures Procedure Name Priority Date/Time Associated Diagnosis Comments POCT RESPIRATORY SYNCYTIAL VIRUS Routine 12/04/2024 7:45 PM HIGH SCHOOL FOOTBALL COACH Cough, unspecified type POC INFLUENZA A/B, COVID-19 ANTIGEN Routine 12/04/2024 7:42 PM HIGH SCHOOL FOOTBALL COACH Cough, unspecified type from Last 3 Months Results * POCT respiratory syncytial virus (12/04/2024 7:45 PM HIGH SCHOOL FOOTBALL COACH) RSV Rapid Ag neg Nasal 12/04/2024 7:45 PM HIGH SCHOOL FOOTBALL COACH Charley Jewell FORGING PRESS OPERATOR POINT OF CARE TEST ORDERAB LES Final Result * POC Influenza A/B, COVID-19 antigen (12/04/2024 7:42 PM HIGH SCHOOL FOOTBALL COACH) Influenza A Ag, POC Negative Negative [facility] Influenza B Ag, POC Negative Negative [facility] COVID-19 Ag POC Presumptive Negative Presumptive Negative, Invalid [facility] Nasal 12/04/2024 7:42 PM HIGH SCHOOL FOOTBALL COACH Charley Jewell FORGING PRESS OPERATOR POINT OF CARE TEST ORDERAB LES Final Result [facility] [address] [place] [address], [facility] from Last 3 Months Insurance [facility] Care Teams Vice President Pharmacy Relationship Specialty Start Date End Date Unknown, Notinfantoni PCP - General 01/14/23
--- OUTSIDE RECORDS SUMMARY | 2025-01-22 18:00 | XMS_ITS | Clinical Summary ---
Author Organization [facility] Address [address] [facility] [place] [address] Care Team Providers Care Entry Level Project Engineer Name Role Phone Juan Quintero MD Primary Care Provider Debra Mcclellan MD Unavailable [phone] Source Comments [facility],non-owned Affiliates and Associated Physician Practices is amultiple site organization consisting of ambulatory clinics and hospital sitesin [place], [place], [place] and [place]. This disclosure is being madepursuant to the Care Everywhere program and may not contain all information available regarding this patient. Last updated 18.[facility] [employer] Allergies No known active allergies Medications * [...] AM CDT Pulse 98 11/02/2020 10:02 AM FUNERAL DRIVER Temperature 37.4 C (99.4 F) 11/02/2020 10:02 AM FUNERAL DRIVER Respiratory Rate 16 11/02/2020 10:02 AM FUNERAL DRIVER Oxygen Saturation 97% 11/02/2020 10:02 AM FUNERAL DRIVER Inhaled Oxygen Concentration - - Weight 149.7 kg (330 lb) 11/02/2020 10:02 AM FUNERAL DRIVER Height 175.3 cm (5' 9 ) 11/02/2020 10:02 AM FUNERAL DRIVER Body Mass Index 48.73 11/02/2020 10:02 AM FUNERAL DRIVER Plan of Treatment Health Maintenance Due Date Last Done Comments HIV SCREENING 2010 HEPATITIS C SCREENING 05/23/2013 HEPATITIS B VACCINE (1 of 3 - 19+ 3-dose series) 2014 PAP SMEAR 02/04/2024 COVID-19 VACCINE (2023-2 5 season) 2024 INFLUENZA VACCINE (#1) 2024 DEPRESSION SCREENING 11/15/2024 DTAP/TDAP/TD VACCINES (3 - T d or Tdap) 05/25/2030 05/25/2020, 05/16/2018 ZOSTER VACCINE (1 of 2) 2045 HIB VACCINE Aged Out No longer eligi ble based on patient's age to complete this topic HPV VACCINE Aged Out No longer eligi ble based on patient's age to complete this topic MENINGOCOCCAL (Group B) VACCINE Aged Out No longer eligible b ased on patient's age to complete this topic MENINGOCOCCAL VACCINE Aged Out No olivier albaro eligible based on patient's age to complete this topic PNEUMOCOCCAL VACCINE Aged Out No long er eligible based on patient's age to complete this topic Advance Directives Documents on File Type Date Recorded Patient Molder Trimmer Expl anation Adv Directive/Living Will/POA 03/26/2017 Care Teams Entry Level Project Engineer Relationship Specialty Start Date End Date Juan Quintero MD [address] [place] [address] PCP - General 06/04/21 Debra Mcclellan MD [address] [address] 06/04/21
--- OUTSIDE RECORDS SUMMARY | 2025-01-22 18:00 | XMS_ITS | Clinical Summary ---
Author Organization [address] [address] Care Team Providers Care Senior Strategy Manager Name Role Phone Unknown, Notinfile Primary Care Provider Unavail able Allergies No known active allergies Medications ergocalciferol [...] Problem Noted Date Diagnosed Date Obesity 11/02/2011 Encounters Date Type Department Care Team Description 12/04/2024 7:15 PM Z OS MAINFRAME SYSTEMS PROGRAMMER Office Visit [facility] Care at [address] [address] Charley Jewell NP Cough, unspecified type (Primary Dx) from Last 3 Months Immunizations Immunization Administration Dates Next Due Tdap 01/14/2023 Family History Medical History Relation Name Comments Breast cancer Mother Family history of malignant neoplasm of breast - (Added by TW Conv) Relation Name Status Comments Mother Social History Tobacco Use Types Packs/Day Years Used Date Smoking Tobacco: Never Comments Unknown Sex and Gender Information Value Date Recorded Sex Assigned at Not on file Legal Sex Female 3:58 AM Z OS MAINFRAME SYSTEMS PROGRAMMER Gender Identity Not on file Sexual Orientation Not on file Obstetrics History Last Filed Vital Signs Vital Sign Reading Time Taken Comments Blood Pressure 129/84 12/04/2024 7:13 PM Z OS MAINFRAME SYSTEMS PROGRAMMER Pulse 74 12/04/2024 7:13 PM Z OS MAINFRAME SYSTEMS PROGRAMMER Temperature 37 C (98.6 F) 12/04/2024 7:13 PM Z OS MAINFRAME SYSTEMS PROGRAMMER Respiratory Rate 20 12/04/2024 7:13 PM Z OS MAINFRAME SYSTEMS PROGRAMMER Oxygen Saturation 98% 12/04/2024 7:13 PM Z OS MAINFRAME SYSTEMS PROGRAMMER Inhaled Oxygen Concentration - - Weight 165.6 kg (365 lb 3.1 oz) 05/22/2014 5:56 AM CDT Height 177.8 cm (5' 10 ) 12/04/2024 7:13 PM Z OS MAINFRAME SYSTEMS PROGRAMMER Body Mass Index 52.4 05/22/2014 5:56 AM CDT Plan of Treatment Health Maintenance Due Date Last Done Comments Cervical Cancer Screening 1995 Depression Screening 1995 Hepatitis C Screening 1995 Regular Well Visit/Exam 18-64 2013 Covid-19 Vaccine ( season) 2024 10/14/2021, 04/12/2021, 03/20/2021 Influenza Vaccine (#1) 2024 09/07/2021, 2017 DTaP/Tdap/Td Vaccine (11 - Td or Tdap) 01/14/2033 01/14/2023, 09/06/2021, 05/25/2020, Additional history exists Hepatitis B Screening Completed 03/03/1996 , 1995, 1995 HPV Vaccines Completed 06/07/2008, 09/16, 07/08/2007 Varicella Vaccines Completed 07/04/2009, 11/28/1996 Pneumococcal vaccine <65 Aged Out No longer eligible based on patient's age to complete this topic Procedures Procedure Name Priority Date/Time Associated Diagnosis Comments POCT RESPIRATORY SYNCYTIAL VIRUS Routine 12/04/2024 7:45 PM Z OS MAINFRAME SYSTEMS PROGRAMMER Cough, unspecified type POC INFLUENZA A/B, COVID-19 ANTIGEN Routine 12/04/2024 7:42 PM Z OS MAINFRAME SYSTEMS PROGRAMMER Cough, unspecified type from Last 3 Months Results * POCT respiratory syncytial virus (12/04/2024 7:45 PM Z OS MAINFRAME SYSTEMS PROGRAMMER) RSV Rapid Ag neg Nasal 12/04/2024 7:45 PM Z OS MAINFRAME SYSTEMS PROGRAMMER Charley Jewell SOCIAL SERVICES POINT OF CARE TEST ORDERAB LES Final Result * POC Influenza A/B, COVID-19 antigen (12/04/2024 7:42 PM Z OS MAINFRAME SYSTEMS PROGRAMMER) Influenza A Ag, POC Negative Negative [facility] Influenza B Ag, POC Negative Negative [facility] COVID-19 Ag POC Presumptive Negative Presumptive Negative, Invalid [facility] Nasal 12/04/2024 7:42 PM Z OS MAINFRAME SYSTEMS PROGRAMMER Charley Jewell SOCIAL SERVICES POINT OF CARE TEST ORDERAB LES Final Result [facility] [address] [place] [address], [facility] from Last 3 Months Insurance [employer] Care Teams Senior Strategy Manager Relationship Specialty Start Date End Date Unknown, Notinfile PCP - General 01/14/23
[2025-01-22 18:50] LABS: Basophils Percent Auto 0.5 % (0.2-1.2); Eosinophils Absolute Auto 0.1 K/mm3 (0-0.3); Eosinophils Percent Auto 1.1 % (0-4.4); Hematocrit 39.1 % (37.0-47.0); Immature Granulocyte Absolute 0.02 K/mm3 (0.00-0.031); Immature Granulocyte Percent A 0.2 % (0-0.5); Lymphocytes Absolute Auto 2.51 K/mm3 (0.9-3.2); Lymphocytes Percent Auto 31.1 % (18.3-44.2); Mean Corpuscular HGB Conc 30.7 g/dl (32-36); Mean Corpuscular Hemoglobin 25.8 pg (26-34); Mean Corpuscular Volume 84.1 fl (80-100); Mean Platelet Volume 9.8 fl (7.4-10.4); Monocytes Absolute Auto 0.5 K/mm3 (0.1-0.6); Monocytes Percent Auto 6.4 % (2.6-8.5); Neutrophils Absolute Auto 4.9 K/mm3 (1.3-6.7); Neutrophils Percent Auto 60.7 % (45.5-73.1); Platelet Count Result 301 k/mm3 (150-375); Red Blood Count 4.65 M/mm3 (4.2-5.4); Red Cell Distribution Width 14.7 % (11.5-14.5); White Blood Count 8.1 K/mm3 (4.5-10.0)
[2025-01-22 19:49] LABS: Iron 48 ug/dL (37-170)
[2025-01-22 19:53] LABS: Vitamin D 25 Hydroxy 17.8 ng/mL
[2025-01-22 19:58] LABS: Percent Iron Saturation 12 % (20-50)
[2025-01-22 20:08] LABS: Hemoglobin A1C 5.3 % (<5.7)
[2025-01-22 20:24] LABS: Ferritin 9.91 ng/mL (6.24-137)
== END 2025-01-22 15:22 | disposition home or self-care (01) ==
LOC: ANHGOSHLAB 15:22
PROVIDERS: PCP Clinical Nurse Specialist; Visit Provider Clinical Nurse Specialist
DX: D64.9 Anemia, unspecified (principal); R74.8 Abnormal levels of other serum enzymes; R73.01 Impaired fasting glucose; E55.9 Vitamin D deficiency, unspecified
CPT/HCPCS: 36415; 82306; 82728; 83036; 83540; 83550; 85025

== ENCOUNTER 2025-09-06 10:20 | Outpatient (CLI) | payer OTHER, SELFPAY ==
--- OUTSIDE RECORDS SUMMARY | 2025-09-06 11:22 | XMS_ITS | Clinical Summary ---
Author Organization [facility] Address [address] [place] [address] Care Team Providers Care Vinyl Welder And Fabricator Name Role Phone Juan Quintero MD Primary Care Provider Debra Mcclellan MD Unavailable [phone] Source Comments [facility],non-owned Affiliates and Associated Physician Practices is amultiple site organization consisting of ambulatory clinics and hospital sitesin [place], [place], [place] and [place]. This disclosure is being madepursuant to the Care Everywhere program and may not contain all information available regarding this patient. Last updated 18.[facility] Allergies No known active allergies Medications * Be aware that medications may not be up to date on this document. Alwaysverify current medications with the patient. Sertraline HCl (ZOLOFT PO) Active Norethindrone-E th Estradiol (NORTREL 0.5/35, 28, PO) Acti ve methylPREDNISol one (MEDROL DOSEPAK) 4 MG tablet Take by mouth as directed Take as directed by mouth per package instructions. 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 Immunizations Immunization Administration Dates Next Due TDAP (7yrs+) 05/25/2020,05/16/2018 Social History Tobacco Use Types Packs/Day Years Used Date Smoking Tobacco: Never Smokeless Tobacco: Never Comments No Sex and Gender Information Value Date Recorded Sex Assigned at Not on file Legal Sex Female 5:37 AM SECTION HOUSEKEEPER Gender Identity Not on file Sexual Orientation Not on file Last Filed Vital Signs Vital Sign Reading Time Taken Comments Blood Pressure 118/62 05/25/2020 11:32 AM CDT Pulse 98 11/02/2020 10:02 AM SECTION HOUSEKEEPER Temperature 37.4 C (99.4 F) 11/02/2020 10:02 AM SECTION HOUSEKEEPER Respiratory Rate 16 11/02/2020 10:02 AM SECTION HOUSEKEEPER Oxygen Saturation 97% 11/02/2020 10:02 AM SECTION HOUSEKEEPER Inhaled Oxygen Concentration - - Weight 149.7 kg (330 lb) 11/02/2020 10:02 AM SECTION HOUSEKEEPER Height 175.3 cm (5' 9) 11/02/2020 10:02 AM SECTION HOUSEKEEPER Body Mass Index 48.73 11/02/2020 10:02 AM SECTION HOUSEKEEPER Plan of Treatment Health Maintenance Due Date Last Done Comments HEPATITIS B VACCINE (1 of 3 - 19+ 3-dose series) 2014 HPV VACCINE (1 - 3-dose SCDM series) 2022 DEPRESSION SCREENING 11/15/2024 COVID-19 VACCINE (1 - 2023-2 5 season) 2025 INFLUENZA VACCINE (#1) 2025 DTAP/TDAP/TD VACCINES (3 - T d or Tdap) 05/25/2030 05/25/2020, 05/16/2018 ZOSTER VACCINE (1 of 2) 2045 HEPATITIS C SCREENING Completed 03/03/2021 , 03/03/2021 HIV SCREENING Completed 03/03/2021 HIB VACCINE Aged Out No longer eligi ble based on patient's age to complete this topic MENINGOCOCCAL (Group B) VACCINE SHARED DECISION-MAKING Aged Out No longer eligible based on patient's age to complete this topic MENINGOCOCCAL GROUPS A/C/Y/W VACCINE Aged Out No longer eligible b ased on patient's age to complete this topic PNEUMOCOCCAL VACCINE Aged Out No long er eligible based on patient's age to complete this topic Insurance [employer] [facility] Advance Directives Documents on File Type Date Recorded Patient Mechanical Maintenance Technician Expl anation Adv Directive/Living Will/POA 03/26/2017 Care Teams Vinyl Welder And Fabricator Relationship Specialty Start Date End Date Juan Quintero MD [address] [place] [address] PCP - General 06/04/21 Debra Mcclellan MD [address] [address] 06/04/21
--- OUTSIDE RECORDS SUMMARY | 2025-09-06 11:22 | XMS_ITS | Clinical Summary ---
Author Organization [address] Address [address] [place] [id number] Care Team Providers Care Environmental Permitting Specialist Name Role Phone Unknown, Notinfile Primary Care [...] on file Legal Sex Female 3:58 AM EDITOR IN CHIEF Gender Identity Not on file Sexual Orientation Not on file Obstetrics History Last Filed Vital Signs Vital Sign Reading Time Taken Comments Blood Pressure 129/84 12/04/2024 7:13 PM EDITOR IN CHIEF Pulse 74 12/04/2024 7:13 PM EDITOR IN CHIEF Temperature 37 C (98.6 F) 12/04/2024 7:13 PM EDITOR IN CHIEF Respiratory Rate 20 12/04/2024 7:13 PM EDITOR IN CHIEF Oxygen Saturation 98% 12/04/2024 7:13 PM EDITOR IN CHIEF Inhaled Oxygen Concentration - - Weight 165.6 kg (365 lb 3.1 oz) 05/22/2014 5:56 AM CDT Height 177.8 cm (5' 10) 12/04/2024 7:13 PM EDITOR IN CHIEF Body Mass Index 52.4 05/22/2014 5:56 AM CDT Plan of Treatment Health Maintenance Due Date Last Done Comments Cervical Cancer Screening 1995 Depression Screening 1995 Hepatitis C Screening 1995 Regular Well Visit/Exam 18-64 2013 Covid-19 Vaccine ( season) 2025 10/14/2021, 04/12/2021, 03/20/2021 Influenza Vaccine (#1) 2025 09/07/2021, 2017 DTaP/Tdap/Td Vaccine (11 - Td or Tdap) 01/14/2033 01/14/2023, 09/06/2021, 05/25/2020, Additional history exists Hepatitis B Screening Completed 03/03/1996 , 1995, 1995 HPV Vaccines Completed 06/07/2008, 09/16, 07/08/2007 Varicella Vaccines Completed 07/04/2009, 11/28/1996 Pneumococcal vaccine <65 Aged Out No longer eligible based on patient's age to complete this topic Insurance [facility] Address: [facility] [id number] [place] [id number] Care Teams Environmental Permitting Specialist Relationship Specialty Start Date End Date Unknown, Clnfantoni PCP - General 01/14/23
[2025-09-06 18:53] LABS: Hematocrit 39.3 % (37.0-47.0); Hemoglobin 12.2 g/dL (12.0-15.0); Immature Granulocyte Percent A 0.2 % (0-0.5); Lymphocytes Absolute Auto 2.10 K/mm3 (0.9-3.2); Mean Corpuscular HGB Conc 31.0 g/dl (32-36); Mean Corpuscular Hemoglobin 26.8 pg (26-34); Mean Corpuscular Volume 86.4 fl (80-100); Nucleated Red Blood Cells Absolute Auto 0.000 K/mm3 (0.0-0.012); Nucleated Red Blood Cells Perc 0.0 % (0.0-0.2); Platelet Count Result 339 k/mm3 (150-375); Red Blood Count 4.55 M/mm3 (4.2-5.4); White Blood Count 6.3 K/mm3 (4.5-10.0)
[2025-09-06 22:44] LABS: Alanine Aminotransferase 14 U/L (6-35); Albumin Level 4.3 g/dL (3.5-5.1); Alkaline Phosphatase 84 U/L (38-126); Anion Gap 8 mmol/L (4-12); Aspartate Amino Transferase 28 U/L (14-36); Bilirubin,Total 0.4 mg/dL (0.2-1.3); Blood Urea Nitrogen 10 mg/dL (7-17); Calcium 8.8 mg/dL (8.4-10.2); Carbon Dioxide 24 mmol/L (22-30); Chloride 105 mmol/L (98-107); Cholesterol 198 mg/dL (0-200); Estimated Glomerular Filt Rate > 60; Glucose 89 mg/dL (65-110); HDL Direct 42 mg/dL; Potassium 4.1 mmol/L (3.4-5.0); Sodium 137 mmol/L (137-145); Total Protein 7.5 g/dL (6.3-8.2); Triglycerides 125 mg/dL (<150)
[2025-09-07] LABS: Thyroid Stimulating Hormone 1.280 uIU/mL (0.465-4.680)
== END 2025-09-06 10:21 | disposition home or self-care (01) ==
LOC: ANHGOSHLAB 10:21
PROVIDERS: PCP Clinical Nurse Specialist; Visit Provider Clinical Nurse Specialist
DX: Z13.220 Encounter for screening for lipoid disorders (principal); E55.9 Vitamin D deficiency, unspecified; F41.9 Anxiety disorder, unspecified; D50.9 Iron deficiency anemia, unspecified; Z13.29 Encounter for screening for other suspected endocrine disorder
CPT/HCPCS: 36415; 80053; 80061; 82306; 84443; 85025